=== PATIENT | male | born 1985 | race Caucasian/White ===

== ENCOUNTER 2019-05-02 09:47 | Observation (INO) | payer SELFPAY ==
[2019-05-02] VITALS (10 sets, daily range): BP systolic 117–137; BP diastolic 67–90; PULSE 69–89; RESP 6–21; TEMP 36.4–36.7; O2SAT 96–99; BMI 27.6
--- NOTE | 2019-05-02 10:10 | ED_ITS ---
Entered by Melissa Arrington, acting as scribe for Bobby Pacheco DO HPI - Chest Pain General: Chief Complaint: Chest Pain Stated Complaint: CP Time Seen by Provider: 05/02/19 10:10 Source: patient Mode of arrival: ambulatory Limitations: no limitations History of Present Illness: HPI narrative: 33 yo male presents with chest pain. 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 pt states nothing makes this better and deep breaths makes it worse. pt denies any other symptoms at this. 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) Pain location: left chest Pain radiation: none Severity: moderate Quality: sharp Relieving factors: nothing Exacerbating factors: other (deep breaths) Associated symptoms: Reports no associated symptoms Treatment prior to arrival: none Review of Systems General: Reports: 10 or more systems reviewed and unremarkable except in HPI and below PFSH ED PFSH: Statuses (acute, chronic, etc) shown below reflect problem list status as previously entered and may not be historically accurate Social History Smoking and tobacco status: never smoked Physical Exam Const: COMMON NORMALS: no apparent distress, average body habitus, oriented x3, no limitations, healthy appearing, alert and well nourished HENMT: COMMON NORMALS: normocephalic, head/scalp atraumatic, hearing grossly normal bilaterally, external ears normal, EAC's normal, TM's normal bilaterally, external nose normal, nasal mucous membranes and turbinates normal, moist oral mucous membranes, oropharynx normal, dentition normal and gingiva normal HEAD & SCALP: normocephalic and atraumatic NOSE: external nose normal and nasal mucous membranes and turbinates normal EXTERNAL EAR: Yes external ears normal EXTERNAL AUDITORY CANAL: EAC's normal TYMPANIC MEMBRANE: TM's normal bilaterally Eye: COMMON NORMALS: PERRL, EOMs intact bilaterally, conjunctivae normal, no scleral icterus, no papilledema, normal visual campbell by confrontation and fundi normal bilaterally CONJUNCTIVA: Yes conjunctivae normal PUPIL: Yes PERRL DIRECT OPHTHALMOSCOPY: Yes no papilledema and Yes fundi normal bilaterally Neck/C-Spine: COMMON NORMALS: full ROM, no lymphadenopathy, supple, no meningeal signs, no JVD, thyroid normal and no carotid bruits THYROID: thyroid normal Resp: COMMON NORMALS: normal respiratory effort, no retractions, no use of accessory muscles, clear to auscultation bilaterally and percussion normal AUSCULTATION: clear to auscultation bilaterally PERCUSSION: percussion normal Cardio: COMMON NORMALS: no JVD, regular rate, regular rhythm, S1 normal heart sound, S2 normal heart sound, no gallops, no clicks, no murmurs, no rub and peripheral pulses 2+ throughout RATE: regular rate RHYTHM: regular rhythm HEART SOUNDS: S1 normal and S2 normal PERIPHERAL PULSES: pulses 2+ throughout GI: COMMON NORMALS: normal to inspection, nondistended, normoactive bowel sounds, soft to palpation, non-tender, no hepatosplenomegaly, no masses and no bruits PALPATION: Yes soft and Yes no hepatosplenomegaly : COMMON NORMALS: Yes no CVA tenderness BLADDER/KIDNEY EXAM: Yes no CVA tenderness Back/Pelvis: COMMON NORMALS: no CVA tenderness, thoracic and lumbar spine normal to inspection, no thoracic nor lumbar tenderness, thoraco-lumbar ROM normal and straight leg raise negative bilaterally Extremity: COMMON NORMALS: normal to inspection, full ROM, normal capillary refill, no joint enlargement, no clubbing, cyanosis or edema, no calf tenderness and no pedal edema Neuro: COMMON NORMALS: oriented x3 SENSORIUM/ORIENTATION: Yes alert MENINGEAL SIGNS: Yes no meningeal signs Skin: COMMON NORMALS: no rashes or lesions noted, no wounds, skin turgor normal, no jaundice, no petechiae and no mottling GENERAL SKIN EXAM: no rashes or lesions noted and turgor normal Course Vital Signs: Vital signs: Vital Signs Temperature 97.7 F 05/02/19 09:58 Pulse Rate 71 05/02/19 11:02 Respiratory Rate 6 L 05/02/19 11:02 Blood Pressure 131/87 05/02/19 11:02 Pulse Oximetry 99 05/02/19 11:02 MDM - Chest Pain Lab Data: Labs: Lab Results 05/02/19 05/02/19 05/02/19 Range/Units 10:20 10:20 10:20 WBC 7.2 (4.0-10.0) 10^3/ uL RBC 4.92 (4.1-5.3) 10^6/u L Hgb 14.7 (11.7-16.6) g/dL Hct 44.2 (42.0-52.0) % MCV 89.8 (80-94) fL MCH 29.9 (28.0-34.0) pg MCHC 33.3 (30.0-36.0) g/dL RDW 12.8 (12.1-15.1) % Plt Count 283 (130-400) 10^3/c mm MPV 10.6 H (7.4-10.4) fL Neut % (Auto) 57.4 % Lymph % (Auto) 29.7 % [place] % (Auto) 10.9 % Eos % (Auto) 1.5 % Baso % (Auto) 0.4 % Neut # (Auto) 4.1 (1.8-7.7) 10^3/u L Lymph # (Auto) 2.1 (0.8-4.8) 10^3/u L [place] # (Auto) 0.8 (0.2-0.9) 10^3/u L Eos # (Auto) 0.1 (0.0-0.8) 10^3/u L Baso # (Auto) 0.0 (0.0-0.1) 10^3/u L Nucleated RBC % (a uto) 0 % Nucleated RBCs # 0.0 /100WBC D-Dimer 0.21 (0-0.59) ug/mIFE U Sodium 140 (136-145) mmol/L Potassium 3.8 (3.5-5.1) mmol/L Chloride 102 (98-107) mmol/L Carbon Dioxide 26 (22-29) mmol/L Anion Gap 15.8 (5-19) BUN 12 (6-20) mg/dL Creatinine 1.0 (0.7-1.2) mg/dL GFR Calculation 87.2 L (90-130) mL/min Glucose 89 (74-109) mg/dL Calcium 10.1 (8.5-10.5) mg/dL Total Bilirubin 0.3 (0.15-1.2) mg/dL AST 21 (0-40) U/L ALT 32 (0-41) U/L Alkaline Phosphata se 87 (40-130) IU/L Troponin T Baselin e (0-15) ng/mL Troponin T 120 Min [place] (0-15) ng/mL Delta Troponin T (0-10) ABS# Total Protein 8.6 (6.6-8.7) g/dL Albumin 4.7 (3.5-5.2) g/dL Globulin 3.9 (1.3-4.6) g/dL 05/02/19 05/02/19 Range/Units 10:20 12:36 WBC (4.0-10.0) 10^3/ uL RBC (4.1-5.3) 10^6/u L Hgb (11.7-16.6) g/dL Hct (42.0-52.0) % MCV (80-94) fL MCH (28.0-34.0) pg MCHC (30.0-36.0) g/dL RDW (12.1-15.1) % Plt Count (130-400) 10^3/c mm MPV (7.4-10.4) fL Neut % (Auto) % Lymph % (Auto) % [place] % (Auto) % Eos % (Auto) % Baso % (Auto) % Neut # (Auto) (1.8-7.7) 10^3/u L Lymph # (Auto) (0.8-4.8) 10^3/u L [place] # (Auto) (0.2-0.9) 10^3/u L Eos # (Auto) (0.0-0.8) 10^3/u L Baso # (Auto) (0.0-0.1) 10^3/u L Nucleated RBC % (a uto) % Nucleated RBCs # /100WBC D-Dimer (0-0.59) ug/mIFE U Sodium (136-145) mmol/L Potassium (3.5-5.1) mmol/L Chloride (98-107) mmol/L Carbon Dioxide (22-29) mmol/L Anion Gap (5-19) BUN (6-20) mg/dL Creatinine (0.7-1.2) mg/dL GFR Calculation (90-130) mL/min Glucose (74-109) mg/dL Calcium (8.5-10.5) mg/dL Total Bilirubin (0.15-1.2) mg/dL AST (0-40) U/L ALT (0-41) U/L Alkaline Phosphata se (40-130) IU/L Troponin T Baselin e 9 (0-15) ng/mL Troponin T 120 Min [place] 7.20 (0-15) ng/mL Delta Troponin T -1.80 L (0-10) ABS# Total Protein (6.6-8.7) g/dL Albumin (3.5-5.2) g/dL Globulin (1.3-4.6) g/dL Discharge Plan Discharge Patient Disposition: Admitted As Inpatient Clinical Impression: Atypical chest pain Condition: Fair Coding Level of Care Code ED Clinical Psychologist for Chg Fwd Exam Problem Focused The documentation recorded by the Murphy taylor Bridget Annette, accurately reflects the service I personally performed and the decisions made by Tara sadler Donald P, DO May 02, 2019 09:47
--- NOTE | 2019-05-02 10:49 | ECG_ITS ---
Measurements Intervals [place] Rate: 78 P: 50 MN: 162 QRS: 23 QRSD: 111 T: 24 QT: 362 QTc: 415 SINUS RHYTHM INCOMPLETE RIGHT BUNDLE BRANCH BLOCK [90+ ms QRS DURATION, TERMINAL R IN V1/V2, 40+ ms S IN I/aVL/V4/V5/V6] INTERPRETATION BASED ON A DEFAULT AGE OF 40 YEARS No previous ECG available for comparison Electronically Signed On 05-02-2019 20:14:01 DERRICK BUILDER by Zulay Sunshine M.D. [id number]
--- NOTE | 2019-05-02 10:49 | XR_ITS ---
WS: [id number] CHEST XRAY TECHNIQUE: Portable chest. CLINICAL INFORMATION: chest pain COMPARISON: None. FINDINGS: Heart: Normal cardiac silhouette. Lungs: Lungs are clear. No consolidation or pleural effusion. Bones: Normal visualized bony structures. XR/XR chest 1V portable [id number] IMPRESSION: Normal chest
[2019-05-02] MEDS: ketorolac 30 mg/mL INJ IVP (10:56)
[2019-05-02 11:04] LABS: Basophils % 0.4 %; Eosinophils # 0.1 10^3/uL (0.0-0.8); Eosinophils % 1.5 %; Hematocrit 44.2 % (42.0-52.0); Hemoglobin 14.7 g/dL (11.7-16.6); Lymphocytes # 2.1 10^3/uL (0.8-4.8); Lymphocytes % 29.7 %; Mean Corpuscular HGB Conc 33.3 g/dL (30.0-36.0); Mean Corpuscular Hemoglobin 29.9 pg (28.0-34.0); Mean Corpuscular Volume 89.8 fL (80-94); Mean Platelet Volume 10.6 fL (7.4-10.4); Monocytes # 0.8 10^3/uL (0.2-0.9); Monocytes % 10.9 %; Neutrophils # 4.1 10^3/uL (1.8-7.7); Neutrophils % 57.4 %; Nucleated Red Blood Cells % 0 %; Platelet Count 283 10^3/cmm (130-400); Red Blood Count 4.92 10^6/uL (4.1-5.3); Red Cell Distribution Width 12.8 % (12.1-15.1); White Blood Count 7.2 10^3/uL (4.0-10.0)
[2019-05-02 11:17] LABS: Alanine Aminotransferase 32 U/L (0-41); Albumin Level 4.7 g/dL (3.5-5.2); Alkaline Phosphatase 87 IU/L (40-130); Anion Gap 15.8 (5-19); Aspartate Amino Transferase 21 U/L (0-40); Blood Urea Nitrogen 12 mg/dL (6-20); Calcium 10.1 mg/dL (8.5-10.5); Carbon Dioxide 26 mmol/L (22-29); Chloride 102 mmol/L (98-107); Globulin 3.9 g/dL (1.3-4.6); Glomerular Filtration Rate 87.2 mL/min (90-130); Glucose 89 mg/dL (74-109); Potassium 3.8 mmol/L (3.5-5.1); Sodium 140 mmol/L (136-145); Total Bilirubin 0.3 mg/dL (0.15-1.2); Total Protein 8.6 g/dL (6.6-8.7)
[2019-05-02 11:19] LABS: Troponin(5th) Baseline 9 ng/mL (0-15)
[2019-05-02 11:43] LABS: D Dimer 0.21 ug/mIFEU (0-0.59)
--- NOTE | 2019-05-02 12:02 | PC.NURSE ---
portable xray at bedside
[2019-05-02] MEDS: ondansetron 2 mg/ML SDV 2 mL 4 MG IVP (12:04)
[2019-05-02] MEDS: morphine 4 mg/mL SDV 1 mL IVP (12:04)
--- NOTE | 2019-05-02 12:23 | PC.NURSE ---
pt got another episode of chest pain after morphine administration, pt became bradycardic 39-40bpm, pt was diaphoretic and pale. ED provider notified. EKG performed.
--- NOTE | 2019-05-02 12:49 | ECG_ITS ---
Measurements Intervals [place] Rate: 71 P: 44 NM: 176 QRS: 33 QRSD: 114 T: 29 QT: 391 QTc: 427 SINUS RHYTHM POSSIBLE RIGHT VENTRICULAR CONDUCTION DELAY [RSR (QR) IN V1/V2] No previous ECG available for comparison Electronically Signed On 05-02-2019 20:17:12 OTR DRIVER by Zulay Sunshine M.D. [id number]
--- NOTE | 2019-05-02 13:55 | PM.HP ---
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 He describes it as episodic, left sided with some radiation to the back, sharp, intense, with no clear alleviating or aggravating factors, no associated symptoms including shortness of breath, palpitations, lightheadedness/dizziness, syncope, fever/chills, nausea/vomiting. Pain persisted over a couple of hours and he got concerned that it has something to do with his heart so he came to ED for evaluation. He admits to similar pain in the past though it resolved spontaneously after about 30 mins. He appears somewhat uncomfortable during my evaluation in ED. His presentation seems suspicious for musculoskeletal pain but physical examination does not entirely support this. As such, admission is requested for further evaluation. Discussed possibility of stress testing if pain persists which pain is agreeable to. Review of Systems Const: Denies: fever, chills, change in appetite (decreased appetite) or fatigue Eyes: Denies: change in vision ENMT: Denies: dry mouth Card: Reports: chest pain; Denies: palpitations, irregular heart rhythm, edema, swelling of feet/ankles, lightheadedness, syncope or pre-syncope Resp: Denies: shortness of breath, productive cough or chest congestion GI: Denies: abdominal pain, nausea, vomiting, vomiting blood or blood in stool : Denies: painful urination or urinary frequency Musc: Denies: back pain Skin/Breast: Denies: rash Neuro: Denies: numbness in extremities or weakness in extremities Psych: Denies: anxiety Medications/Allergies Home Medications Medication Instructions Recorded Confirmed Last Taken Type No Known Home Medications 05/02/19 05/02/19 Unknown History Allergies Allergy/AdvReac Type Severity Reaction Status Date / Time No Known Allergies Allergy Verified 05/02/19 10:02 PFSH Acute PFSH: Statuses (acute, chronic, etc) shown below reflect problem list status as previously entered and may not be historically accurate Surgical History (Updated 05/02/19 @ 13:57 by Patricia Gonzalez MD) H/O tooth extraction (Acute) Family History (Updated 05/02/19 @ 13:57 by Patricia Gonzalez MD) Mother Hypertension Social History (Updated 05/02/19 @ 13:58 by Patricia Gonzalez MD) Smoking and tobacco status: never smoked Alcohol intake: never Substance/Drug Use: never Vitals/I&O/Wt Last Vital Signs Temp 97.7 F 05/02/19 09:58 Pulse 71 05/02/19 11:02 Resp 6 L 05/02/19 11:02 BP 131/87 05/02/19 11:02 Pulse Ox 99 05/02/19 11:02 Weight last 48 hrs Weight 97.522 kg Physical Exam Const: COMMON NORMALS: no apparent distress and oriented x3 GENERAL APPEARANCE: cooperative and comfortable ORIENTATION/CONSCIOUSNESS: Yes awake HENMT: COMMON NORMALS: normocephalic, head/scalp atraumatic, hearing grossly normal bilaterally and moist oral mucous membranes HEAD & SCALP: normocephalic and atraumatic Eye: COMMON NORMALS: PERRL, EOMs intact bilaterally and conjunctivae normal CONJUNCTIVA: Yes conjunctivae normal PUPIL: Yes PERRL Neck/C-Spine: COMMON NORMALS: full ROM GENERAL: Yes normal visual inspection and Yes trachea midline Chest: COMMONS NORMALS: inspection of chest normal and palpation of chest normal CHEST: Yes symmetrical chest wall rise Resp: COMMON NORMALS: normal respiratory effort, no retractions, no use of accessory muscles and clear to auscultation bilaterally EFFORT & INSPECTION: Yes able to speak in complete sentences, Yes symmetric chest movement and No tachypneic AUSCULTATION: clear to auscultation bilaterally Cardio: COMMON NORMALS: regular rate, regular rhythm, S1 normal heart sound, S2 normal heart sound and no murmurs RATE: regular rate RHYTHM: regular rhythm HEART SOUNDS: S1 normal and S2 normal GI: COMMON NORMALS: normal to inspection, nondistended, normoactive bowel sounds, soft to palpation and non-tender PALPATION: Yes soft Back/Pelvis: COMMON NORMALS: thoracic and lumbar spine normal to inspection Extremity: COMMON NORMALS: normal to inspection, full ROM and no clubbing, cyanosis or edema; negative for no pedal edema Neuro: COMMON NORMALS: oriented x3, moves all extremities, no focal motor deficits, no sensory deficits noted and gait normal Psych: COMMON NORMALS: mental status grossly normal, thought process normal, cooperative, affect normal and speech normal SPEECH: Yes normal speech THOUGHT PROCESS: normal thought process Skin: COMMON NORMALS: no rashes or lesions noted, no jaundice, no petechiae and no mottling GENERAL SKIN EXAM: no rashes or lesions noted Data : 05/02/19 10:20 05/02/19 10:20 A&P Assessment and plan (1) Atypical chest pain: -from presentation, chest pain almost seems musculoskeletal in origin but examination does not entirely support this. -he does not have any risk factors for CAD given age, no hx of smoking, no hx of CAD including FHx, no hx of HTN, DM but would still be prudent to rule this out -trend troponins, ECGs -telemetry monitoring -monitor vital signs -NSAIDs; avoid morphine as may have had a reaction to this in ED earlier -consider stress testing in AM if persistent pain -regular diet as tolerated -low risk for DVT so no need for ppx -Dispo: home -Code status: FULL code Status: Acute Code(s): R07.89 - Other chest pain Attestations Medical Necessity Statement*: Edgar Akers's hospital stay will be less than 2 midnights for management and workup of atypical chest pain. Time Spent in Patient Care: Greater than 35 minutes (>than 50% of time spent in counselling and/or direct pt care on unit). Coding Level of Care Code Acute Physician Gynecologist for Lisbet Francisco Diagnoses Atypical chest pain R07.89
--- NOTE | 2019-05-02 15:20 | ECG_ITS ---
NAME OF STUDY: LEXISCAN SESTAMIBI STRESS TEST INDICATION: Chest Pain r/o ACS LEXISCAN STRESS TEST ORDERING PHYSICIAN: Hospitalist CLINICAL INFORMATION: Chest pain INTERPRETATION: 1. The patient was brought to the laboratory where Lexiscan was infused over 20 seconds. The resting blood pressure was 136/86. Maximum blood pressure was 136/86. The resting heart rate was 64 beats per minute. The maximum heart rate is 105 beats per minute. 2. The baseline electrocardiogram reveals sinus rhythm with an incomplete right bundle branch block 3. With Lexiscan infusion, there were no ST segment changes to suggest ischemia. 4. The patient experienced no symptoms or arrhythmias during the examination. CONCLUSION: 1. Unremarkable Lexiscan infusion. 2. Nuclear imaging to follow. Electronically Signed On 05-03-2019 9:27:09 VICE PRESIDENT UNDERWRITING by Paul Carmona M.D. [email or web address]
[2019-05-02] MEDS: lidocaine 5% Patch 1 PATCH TOPICAL (16:33)
--- NOTE | 2019-05-02 16:49 | ECG_ITS ---
Measurements Intervals [place] Rate: 74 P: 38 W[place]: 162 QRS: 16 QRSD: 109 T: 35 QT: 366 QTc: 408 SINUS RHYTHM INCOMPLETE RIGHT BUNDLE BRANCH BLOCK [90+ ms QRS DURATION, TERMINAL R IN V1/V2, 40+ ms S IN I/aVL/V4/V5/V6] No previous ECG available for comparison Electronically Signed On 05-02-2019 20:18:27 ELECTRICAL ACCESSORIES I ASSEMBLER by Zulay Sunshine M.D. [id number]
[2019-05-02 17:28] LABS: Troponin 5 6HR 6.94 ng/L (0-15)
[2019-05-02 17:43] LABS: Troponin 5 6HR Delta -2.06 ng/L (0-12)
[2019-05-02] MEDS: ketorolac 10 mg Tablet PO (18:12)
--- NOTE | 2019-05-03 | NMCV_ITS ---
NM tierra perf SPECT r/s* [id number] Edgar Akers Age: 33 Gender: M : 1985 Exam Date: 05/03/2019 Ordering Phys: Patricia Gonzalez MD Technologist: ANA LAURA Sanabria Exam Location: [facility] Indications: Chest pain STRESS TEST Please see separate stress test report in [facility] for full findings IMAGE PROTOCOL Rest/Stress 1 Lexiscan Day Radiopharmaceutical Dose (mCi) Administration Site Administered by Rest: Tc-99m 10.9 IV ANA LAURA Sanabria Sestamibi Stress:Tc-99m 32.9 IV ANA LAURA Sanabria Sestamibi Rest: 03-May-2019 60 Discovery 630 Stress: 03-May-2019 60 Discovery 630 0.4mg Lexiscan. Images obtained in supine and prone position. SPECT RESULTS Technical Quality: Good Raw Data Analysis: Normal Image Corrections: Patient motion artifact - motion correction applied to rest images Summed Stress Score: 2 Summed Rest Score: 1 Summed Difference Score: 1 PERFUSION FINDINGS Medium-size area of decreased tracer uptake noted in basal to distal inferior wall on the rest images which improved over stress images suggestive of artifact FUNCTIONAL RESULTS (calculated via Gated SPECT) Stress Image LV EF (%): 59 Stress EDV (mL):109 TID: 1.09 Stress ESV (mL):45 Rest Image LV EF (%): 59 FUNCTIONAL FINDINGS: There is normal left ventricular systolic function. IMPRESSIONS This study is negative for ischemia. EKG segment will be documented separately. Zulay Sunshine MD (Electronically Signed) Final Date: 03 May 2019 15:06 S
[2019-05-03 04:00] VITALS: BP 128/75; PULSE 76; RESP 16; TEMP 36.4; O2SAT 96
[2019-05-03 07:23] VITALS: BP 130/87; PULSE 78; RESP 18; TEMP 36.7; O2SAT 96
--- NOTE | 2019-05-03 08:11 | SUR.PREOP ---
Patient reports no pain or discomfort prior to the start of the procedure.
[2019-05-03] MEDS: regadenoson 0.4 Mg/5 ml Syringe IVP (08:12)
--- NOTE | 2019-05-03 08:31 | PM.DCS ---
Discharge Providers Date of Admission: 05/02/19 13:49 Date of Discharge: Date of Discharge: May 03, 2019 Attending Provider at Admission: Patricia Gonzalez MD Attending Provider at Discharge: Patricia Gonzalez MD Primary Care Provider: DOCTOR NOT ON FILE Diagnoses at Discharge Discharge Diagnosis (1) Atypical chest pain: Status: Acute Problem details: -from presentation, chest pain almost seems musculoskeletal in origin but examination does not entirely support this. -he does not have any risk factors for CAD given age, no hx of smoking, no hx of CAD including FHx, no hx of HTN, DM but would still be prudent to rule this out -trend troponins, ECGs -telemetry monitoring -monitor vital signs -NSAIDs; avoid morphine as may have had a reaction to this in ED earlier -stress testing negative -regular diet as tolerated Reason for Visit Reason for Visit: Reason For Visit: CHEST PAIN Hospital Course Hospital Course: Patient was admitted to cardiac step down unit and placed on telemetry monitoring. Troponins were trended and serial ECGs done, which were negative. He had stress testing done which is negative. Pain has since improved and is more consistent with musculoskeletal etiology. Patient is advised to take OTC pain meds as needed for pain relief, but is to seek medical attention immediately if symptoms worsen. Physical Exam Const: COMMON NORMALS: no apparent distress and oriented x3 GENERAL APPEARANCE: cooperative and comfortable ORIENTATION/CONSCIOUSNESS: Yes awake HENMT: COMMON NORMALS: normocephalic, head/scalp atraumatic, hearing grossly normal bilaterally and moist oral mucous membranes HEAD & SCALP: normocephalic and atraumatic Eye: COMMON NORMALS: PERRL, EOMs intact bilaterally and conjunctivae normal CONJUNCTIVA: Yes conjunctivae normal PUPIL: Yes PERRL Neck/C-Spine: COMMON NORMALS: full ROM GENERAL: Yes normal visual inspection and Yes trachea midline Chest: COMMONS NORMALS: inspection of chest normal and palpation of chest normal CHEST: Yes symmetrical chest wall rise Resp: COMMON NORMALS: normal respiratory effort, no retractions, no use of accessory muscles and clear to auscultation bilaterally EFFORT & INSPECTION: Yes able to speak in complete sentences, Yes symmetric chest movement and No tachypneic AUSCULTATION: clear to auscultation bilaterally Cardio: COMMON NORMALS: regular rate, regular rhythm, S1 normal heart sound, S2 normal heart sound and no murmurs RATE: regular rate RHYTHM: regular rhythm HEART SOUNDS: S1 normal and S2 normal GI: COMMON NORMALS: normal to inspection, nondistended, normoactive bowel sounds, soft to palpation and non-tender PALPATION: Yes soft Back/Pelvis: COMMON NORMALS: thoracic and lumbar spine normal to inspection Extremity: COMMON NORMALS: normal to inspection, full ROM and no clubbing, cyanosis or edema; negative for no pedal edema Neuro: COMMON NORMALS: oriented x3, moves all extremities, no focal motor deficits, no sensory deficits noted and gait normal Psych: COMMON NORMALS: mental status grossly normal, thought process normal, cooperative, affect normal and speech normal SPEECH: Yes normal speech THOUGHT PROCESS: normal thought process Skin: COMMON NORMALS: no rashes or lesions noted, no jaundice, no petechiae and no mottling GENERAL SKIN EXAM: no rashes or lesions noted Discharge Data Data Completed and Pending: Completed Studies During Hospitalization Category Date Time Status XR chest 1V [place] ble [id number] Stat Exams 05/02/19 10:49 Completed Pending at discharge Category Date Time Status Sestamibi Stress Test Request Routi ne Exams 05/02/19 15:20 Ordered NM tierra perf SPECT r/s* [id number] Routin e Nuc Med 05/03/19 Ordered Labs from last 24 hours 05/02/19 05/02/19 05/02/19 16:50 12:36 10:20 WBC RBC Hgb Hct MCV MCH MCHC RDW Plt Count MPV Neut % (Auto) Lymph % (Auto) [place] % (Auto) Eos % (Auto) Baso % (Auto) Neut # (Auto) Lymph # (Auto) [place] # (Auto) Eos # (Auto) Baso # (Auto) Nucleated RBC % (a uto) Nucleated RBCs # D-Dimer Sodium Potassium Chloride Carbon Dioxide Anion Gap BUN Creatinine GFR Calculation Glucose Calcium Total Bilirubin AST ALT Alkaline Phosphata se Troponin I 6 Hour 6.94 Troponin I Hi Sens Del -2.06 L Troponin T Baselin e 9 Troponin T 120 Min nome 7.20 Delta Troponin T -1.80 L Total Protein Albumin Globulin 05/02/19 05/02/19 05/02/19 10:20 10:20 10:20 WBC 7.2 RBC 4.92 Hgb 14.7 Hct 44.2 MCV 89.8 MCH 29.9 MCHC 33.3 RDW 12.8 Plt Count 283 MPV 10.6 H Neut % (Auto) 57.4 Lymph % (Auto) 29.7 [place] % (Auto) 10.9 Eos % (Auto) 1.5 Baso % (Auto) 0.4 Neut # (Auto) 4.1 Lymph # (Auto) 2.1 [place] # (Auto) 0.8 Eos # (Auto) 0.1 Baso # (Auto) 0.0 Nucleated RBC % (a uto) 0 Nucleated RBCs # 0.0 D-Dimer 0.21 Sodium 140 Potassium 3.8 Chloride 102 Carbon Dioxide 26 Anion Gap 15.8 BUN 12 Creatinine 1.0 GFR Calculation 87.2 L Glucose 89 Calcium 10.1 Total Bilirubin 0.3 AST 21 ALT 32 Alkaline Phosphata se 87 Troponin I 6 Hour Troponin I Hi Sens Del Troponin T Baselin e Troponin T 120 Min nome Delta Troponin T Total Protein 8.6 Albumin 4.7 Globulin 3.9 Vitals: Last Vital Signs Temp 98.0 F 05/03/19 07:23 Pulse 78 05/03/19 07:23 Resp 18 05/03/19 07:23 BP 130/87 05/03/19 07:23 Pulse Ox 96 05/03/19 07:23 Discharge Plan Discharge Patient Disposition: Home, Self-Care Condition: Fair Prescriptions: No Action No Known Home Medications RF: 0 Discharge Orders: Discharge Order (Routine); Ordered 05/03/19 Ordered By: Patricia Gonzalez Discharge Diet: Regular Discharge Activity: Resume usual activity Discharge Attestations Time Spent in Discharge Care*: greater than 30 min Specific Discharge Activities: Specific discharge activities: educating patient, documenting/other paperwork and evaluating patient/reviewing data Status at Discharge: Cognitive status at discharge: cognitively intact, Behavioral status at discharge: cooperative, Functional status at discharge: independent ambulation Overall status at discharge: patient is back to baseline Quality Metrics Clinical Quality Measures During this hospital stay, did patient experience: None Coding Level of Care Code Acute Nut Sheller Machine Operator for Lisbet Francisco Exam Problem Focused Diagnoses Atypical chest pain R07.89
[2019-05-03 08:32] VITALS: BP 129/67; PULSE 85
--- NOTE | 2019-05-03 10:46 | PC.CHAP ---
Pastoral Care Encounter/Spiritual Assessment Type of Contact [] Declined carpentry instructor visit [] Patient/Family/Request visit [] Outpatient visit [] Follow-up visit [] Physician referral [] Code/Alert [x] Routine visit [] Staff referral [] Actively dying [] Patient sleeping [] Family support [] [] Out of room [] Palliative care [] [] Receiving care in room [] Pre-surgical visit [] Trauma [] Long length of stay [] ICU visit [] Other: Relational/Emotional Strength [x] Patient feels connected with others/family/visitors/staff [] Distress [] Loneliness/isolation [] Abandonment Spirituality of Patient [x] Person of [place] [x] Attends Religion of their [place] [x] Believes in Prayer [x Reads Bible or Jainism materials [] There are Spiritual issues to be addressed Front Counter Attendant Interventions [x] Prayer [] Active listening [] Non-anxious presence [] Spiritual/emotional support [] Crisis/trauma care [] Spiritual counseling [] Bereavement support [] Provided bereavement packet [] Provided Bible/devotional materials [] Provided toy/stuffed animal, coloring book to patient or family member [] Provided Communion [] Anointing/[place] [] Salvation [x] Completed spiritual assessment [] Other: Impact on Illness or Injury [] Angry [] Fearful [] Anxious [] Often cries [] Exhaustion [] Unable to work [] Unable to attend uatsdin [] Unable to walk/stand [] Unable to read [] Unable to drive [] Unable to eat/drink [] Unable to sleep [] Unable to be with family [] Patient intubated [] Other: Summary 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 Time spent with patient 10 min
[2019-05-03 10:58] VITALS: BP 129/72; PULSE 74; RESP 12; TEMP 36.7; O2SAT 99
[2019-05-03 13:58] VITALS: BP 129/72; PULSE 74; RESP 12; TEMP 36.7; O2SAT 99
== END 2019-05-03 14:15 | disposition home or self-care (01) ==
LOC: ER 13:46 → CSU 14:53
PROVIDERS: Admitting Provider Family Medicine; Emergency Provider Family Medicine; Visit Provider Family Medicine
DX: R07.89 Other chest pain (principal); Z82.49 Family history of ischemic heart disease and other diseases of the circulatory system
CPT/HCPCS: 12345; 36415; 71045; 78452; 80053; 84484; 85025; 85378; 93005; 93017; 96374; 96375; 96376; 99283; 99285; A9500; G0378; J1885; J2270; J2405; J2785